=== PATIENT | male | born 1960 | race Caucasian/White ===

== ENCOUNTER 2017-03-28 14:33 | Emergency (ER) | payer BC ==
[~2017-03-28] VITALS: Ht 170.2 cm; Wt 89.0 kg
[2017-03-28] MEDS ORDERED: IBUPROFEN 600MG TABLET PO ONE (18:00)
[2017-03-28 18:45] VITALS: BP 133/74
== END 2017-03-28 19:30 | disposition home or self-care (01) ==
LOC: ER 15:13
DX: S20.211A Contusion of right front wall of thorax, initial encounter (principal); I10 Essential (primary) hypertension; F17.210 Nicotine dependence, cigarettes, uncomplicated; W07.XXXA Fall from chair, initial encounter; Y93.89 Activity, other specified; Y92.009 Unspecified place in unspecified non-institutional (private) residence as the place of occurrence of the external cause; Y99.8 Other external cause status
CPT/HCPCS: 99282

== ENCOUNTER 2017-06-30 07:55 | Emergency (ER) | payer BC ==
[~2017-06-30] VITALS: Ht 170.2 cm; Wt 86.0 kg
[2017-06-30 09:30] VITALS: BP 148/87
== END 2017-06-30 10:15 | disposition home or self-care (01) ==
LOC: ER 09:39
DX: M79.1 Myalgia (principal); I10 Essential (primary) hypertension
CPT/HCPCS: 99282; Z7610

== ENCOUNTER 2020-07-27 16:09 | Emergency (ER) | payer BC, MEDICAID ==
[~2020-07-27] VITALS: Ht 170.2 cm; Wt 76.0 kg
[2020-07-27 16:28] VITALS: BP 144/83
[2020-07-27] MEDS ORDERED: IBUPROFEN 600MG TABLET PO ONE (17:45)
== END 2020-07-27 18:44 | disposition home or self-care (01) ==
LOC: ER 16:09
DX: M54.9 Dorsalgia, unspecified (principal); M47.9 Spondylosis, unspecified
CPT/HCPCS: 72100; 99283

== ENCOUNTER 2021-08-16 14:35 | Inpatient (IN) | payer MEDICARE, MEDICAID ==
[~2021-08-16] VITALS: Ht 172.7 cm; Wt 81.2 kg
[~2021-08-16 14:35] MED LIST: AMOX-424 MT; SULF1TAB48 MT
[2021-08-16 15:00] VITALS: BP 125/67
[2021-08-16] MEDS ORDERED: ONDANSETRON HCL 4MG TABLET PO PRN (15:15)
[2021-08-16] MEDS ORDERED: ACETAMINOPHEN 650MG/20.3ML UDC PO PRN (15:15)
[2021-08-16] MEDS ORDERED: ACETAMINOPHEN 325MG TABLET PO PRN (15:15)
[2021-08-16] MEDS ORDERED: CLONIDINE 0.1MG TABLET PO PRN (15:15)
[2021-08-16 16:32] VITALS: BP 125/67
[2021-08-16] MEDS ORDERED: NALOXONE HCL 0.4MG/ML VIAL IV PRN (17:15)
[2021-08-16] MEDS: HYDROCODONE/ACETAMINOPHEN 10/325MG TABLET PO PRN (18:12)
[2021-08-16 20:00] VITALS: BP 121/67
[2021-08-17 06:36] LABS: HEMATOCRIT. 44.3 % (42.0-52.0); HEMOGLOBIN. 15.5 g/dL (14.0-18.0); MEAN CORPUSCULAR HEMOGLOBIN 33.3 pg (28.0-32.0); MEAN CORPUSCULAR VOLUME 95.3 fL (80.0-94.0); MEAN PLATELET VOLUME 6.6 fl (7.4-10.4); PLATELET 360 x1000/uL (130-400); RED BLOOD CELL COUNT 4.65 mill/uL (4.7-6.1); RED CELL DISTRIBUTION WIDTH 14.2 % (11.6-14.6)
[2021-08-17 06:49] LABS: CHLORIDE 107 mEq/L (98-107)
[2021-08-17 07:57] VITALS: BP 119/50
[2021-08-17] MEDS: FOLIC ACID 1MG TABLET PO SCH (09:09)
[2021-08-17] MEDS: THIAMINE HCL 100MG TABLET PO SCH (09:09)
[2021-08-17] MEDS: AMLODIPINE 10MG TABLET PO SCH (09:09)
[2021-08-17] MEDS: HYDROCODONE/ACETAMINOPHEN 10/325MG TABLET PO PRN ×2 (09:13→21:17)
[2021-08-17 17:48] LABS: PLATELET ESTIMATE NORMAL
[2021-08-17 20:00] VITALS: BP 102/53
[2021-08-18 08:00] VITALS: BP 111/55
[2021-08-18] MEDS: FOLIC ACID 1MG TABLET PO SCH (09:08)
[2021-08-18] MEDS: THIAMINE HCL 100MG TABLET PO SCH (09:08)
[2021-08-18] MEDS: AMLODIPINE 10MG TABLET PO SCH (09:08)
[2021-08-18] MEDS ORDERED: HYDROCORTISONE 1% RECTAL CREAM 30GM PR PRN (09:30)
[2021-08-18 18:19] LABS: HEPATITIS B SURFACE ANTIGEN NEGATIVE
[2021-08-18] MEDS: HYDROCODONE/ACETAMINOPHEN 10/325MG TABLET PO PRN (18:43)
[2021-08-18 20:00] VITALS: BP 147/73
[2021-08-19 06:25] LABS: BASOPHILS % 0.9 % (0.0-2.0); EOSINOPHILS % 4.7 % (0.0-5.0); HEMATOCRIT. 47.6 % (42.0-52.0); HEMOGLOBIN. 16.6 g/dL (14.0-18.0); LYMPHOCYTES % 23.3 % (20.0-50.0); MEAN CORPUSCULAR HEMOGLOBIN 33.6 pg (28.0-32.0); MEAN CORPUSCULAR VOLUME 96.5 fL (80.0-94.0); MEAN PLATELET VOLUME 6.6 fl (7.4-10.4); MONOCYTES % 13.3 % (2.0-8.0); NEUTROPHILS % 57.8 % (40.0-76.0); PLATELET 397 x1000/uL (130-400); RED BLOOD CELL COUNT 4.94 mill/uL (4.7-6.1); RED CELL DISTRIBUTION WIDTH 14.5 % (11.6-14.6)
[2021-08-19 06:42] LABS: FERRITIN 839 ng/mL (22-322); PROSTRATE SPECIFIC AG TOTAL 0.29 ng/mL (0.0-4.0)
[2021-08-19 06:47] LABS: CHLORIDE 107 mEq/L (98-107)
[2021-08-19 06:54] LABS: VITAMIN B12 SERUM 713 pg/mL (211-911)
[2021-08-19 06:57] LABS: FOLIC ACID (FOLATE) SERUM > 20.00 ng/mL (>5.38)
[2021-08-19 06:58] LABS: TOTAL IRON BINDING CAPACITY 401 ug/dL (250-450)
[2021-08-19 08:00] VITALS: BP 120/67
[2021-08-19] MEDS: FOLIC ACID 1MG TABLET PO SCH (09:41)
[2021-08-19] MEDS: THIAMINE HCL 100MG TABLET PO SCH (09:41)
[2021-08-19] MEDS: AMLODIPINE 10MG TABLET PO SCH (09:41)
[2021-08-19] MEDS ORDERED: OXYCODONE HCL 5MG TABLET PO PRN (10:30)
[2021-08-19] MEDS ORDERED: NALOXONE HCL 0.4MG/ML VIAL IV PRN (10:45)
[2021-08-19] MEDS ORDERED: HYDROCORTISONE 1% CREAM 30GM TOP SCH (11:00)
[2021-08-19] MEDS ORDERED: HYDROCORTISONE 1% CREAM 30GM TOP PRN (11:00)
[2021-08-19 20:00] VITALS: BP 122/55
[2021-08-20 07:02] LABS: CHLORIDE 107 mEq/L (98-107)
[2021-08-20 07:06] LABS: EOSINOPHILS % 3.9 % (0.0-5.0); HEMATOCRIT. 46.9 % (42.0-52.0); LYMPHOCYTES % 20.5 % (20.0-50.0); MEAN CORPUSCULAR HEMOGLOBIN 33.2 pg (28.0-32.0); MEAN PLATELET VOLUME 7.1 fl (7.4-10.4); MONOCYTES % 13.9 % (2.0-8.0); NEUTROPHILS % 60.7 % (40.0-76.0); PLATELET 424 x1000/uL (130-400); RED BLOOD CELL COUNT 4.83 mill/uL (4.7-6.1); RED CELL DISTRIBUTION WIDTH 14.3 % (11.6-14.6)
[2021-08-20 08:00] VITALS: BP 101/48
[2021-08-20] MEDS: THIAMINE HCL 100MG TABLET PO SCH (08:47)
[2021-08-20] MEDS: FOLIC ACID 1MG TABLET PO SCH (08:47)
[2021-08-20] MEDS: AMLODIPINE 10MG TABLET PO SCH (08:47)
[2021-08-20 20:00] VITALS: BP 139/63
[2021-08-21 07:49] VITALS: BP 137/70
[2021-08-21] MEDS: THIAMINE HCL 100MG TABLET PO SCH (08:15)
[2021-08-21] MEDS: AMLODIPINE 10MG TABLET PO SCH (08:15)
[2021-08-21] MEDS: FOLIC ACID 1MG TABLET PO SCH (08:15)
[2021-08-21] MEDS: OXYCODONE HCL 5MG TABLET PO PRN (08:16)
[2021-08-21 20:00] VITALS: BP 118/68
[2021-08-22 08:21] VITALS: BP 103/53
[2021-08-22] MEDS: THIAMINE HCL 100MG TABLET PO SCH (08:54)
[2021-08-22] MEDS: FOLIC ACID 1MG TABLET PO SCH (08:55)
[2021-08-22] MEDS: AMLODIPINE 10MG TABLET PO SCH (08:55)
[2021-08-22 20:00] VITALS: BP 127/62
[2021-08-23] MEDS: OXYCODONE HCL 5MG TABLET PO PRN ×2 (02:22→22:44)
[2021-08-23 07:09] LABS: BASOPHILS % 0.8 % (0.0-2.0); EOSINOPHILS % 5.5 % (0.0-5.0); HEMATOCRIT. 46.6 % (42.0-52.0); HEMOGLOBIN. 15.9 g/dL (14.0-18.0); LYMPHOCYTES % 23.5 % (20.0-50.0); MEAN CORPUSCULAR HEMOGLOBIN 33.3 pg (28.0-32.0); MEAN CORPUSCULAR VOLUME 97.6 fL (80.0-94.0); MEAN PLATELET VOLUME 6.9 fl (7.4-10.4); MONOCYTES % 11.5 % (2.0-8.0); NEUTROPHILS % 58.7 % (40.0-76.0); PLATELET 455 x1000/uL (130-400); RED BLOOD CELL COUNT 4.77 mill/uL (4.7-6.1); RED CELL DISTRIBUTION WIDTH 14.4 % (11.6-14.6)
[2021-08-23 07:20] LABS: CHLORIDE 107 mEq/L (98-107)
[2021-08-23 07:58] VITALS: BP 100/52
[2021-08-23] MEDS: AMLODIPINE 10MG TABLET PO SCH (09:00)
[2021-08-23] MEDS: FOLIC ACID 1MG TABLET PO SCH (10:00)
[2021-08-23] MEDS: THIAMINE HCL 100MG TABLET PO SCH (10:00)
[2021-08-23] MEDS: BACITRACIN 15GM TUBE TOP SCH (18:16)
[2021-08-23 20:00] VITALS: BP 158/62
[2021-08-24 07:44] VITALS: BP 104/45
[2021-08-24] MEDS ORDERED: AMLO10TA80 PO (08:39)
[2021-08-24] MEDS ORDERED: FOLI-43 PO (08:39)
[2021-08-24] MEDS ORDERED: THIA100T72 PO (08:39)
[2021-08-24] MEDS: THIAMINE HCL 100MG TABLET PO SCH (08:45)
[2021-08-24] MEDS: AMLODIPINE 10MG TABLET PO SCH (08:46)
[2021-08-24] MEDS: BACITRACIN 15GM TUBE TOP SCH (08:46)
[2021-08-24] MEDS: FOLIC ACID 1MG TABLET PO SCH (08:46)
[2021-08-24 11:02] VITALS: BP 104/65
[2021-08-26 19:10] LABS: 25-HYDROXY VITAMIN D3 16 ng/mL (.)
== END 2021-08-24 17:00 | disposition home health service (06) | DRG 571 ==
PROVIDERS: ADMIT Physical Medicine & Rehabilitation Spinal Cord Injury Medicine; ATTEND Internal Medicine
PROC: 0JBN0ZZ Excision of Right Lower Leg Subcutaneous Tissue and Fascia, Open Approach (ICD-10-PCS; principal; 2021-08-18)
PROC: 0JBN0ZZ Excision of Right Lower Leg Subcutaneous Tissue and Fascia, Open Approach (ICD-10-PCS; 2021-08-23)
DX: L03.115 Cellulitis of right lower limb (principal); J98.11 Atelectasis; G62.9 Polyneuropathy, unspecified; S81.811A Laceration without foreign body, right lower leg, initial encounter; F10.20 Alcohol dependence, uncomplicated; R53.81 Other malaise; K76.0 Fatty (change of) liver, not elsewhere classified; I10 Essential (primary) hypertension; R26.89 Other abnormalities of gait and mobility; K82.4 Cholesterolosis of gallbladder; E88.09 Other disorders of plasma-protein metabolism, not elsewhere classified; R16.0 Hepatomegaly, not elsewhere classified; R14.0 Abdominal distension (gaseous); F39 Unspecified mood [affective] disorder; Y90.9 Presence of alcohol in blood, level not specified; F17.210 Nicotine dependence, cigarettes, uncomplicated; X58.XXXA Exposure to other specified factors, initial encounter; Y93.89 Activity, other specified; Y92.89 Other specified places as the place of occurrence of the external cause; Y99.8 Other external cause status
CPT/HCPCS: 36415; 73120; 80053; 80076; 82248; 82306; 82607; 82728; 82746; 83540; 83550; 84134; 84153; 84443; 85025; 86705; 86709; 86803; 87340; 93970; 93971; 97110; 97116; 97162; 97166; 97530; 97535; G0103

== ENCOUNTER 2022-12-24 16:48 | Emergency (ER) | payer MEDICARE, MEDICAID ==
[~2022-12-24] VITALS: Ht 167.6 cm; Wt 84.0 kg
[~2022-12-24 16:48] MED LIST changes: +AMLO10TA80 PO; -AMOX-424 MT; +FOLI-43 PO; -SULF1TAB48 MT; +THIA100T72 PO
[2022-12-24] MEDS ORDERED: IBUP-2028 MT (19:43)
[2022-12-24 20:46] VITALS: BP 152/70
== END 2022-12-24 20:53 | disposition home or self-care (01) ==
LOC: ER 16:48
DX: M25.562 Pain in left knee (principal); I10 Essential (primary) hypertension; E78.00 Pure hypercholesterolemia, unspecified; K76.9 Liver disease, unspecified; W01.0XXA Fall on same level from slipping, tripping and stumbling without subsequent striking against object, initial encounter; Y93.89 Activity, other specified; Y92.018 Other place in single-family (private) house as the place of occurrence of the external cause
CPT/HCPCS: 73560; 99283

== ENCOUNTER 2024-04-18 16:15 | Emergency (ER) | payer MEDICARE ==
[~2024-04-18] VITALS: Ht 172.7 cm; Wt 86.0 kg
[~2024-04-18 16:15] MED LIST changes: +IBUP-2028 MT; +IBUP-2029 MT
[2024-04-18 16:21] VITALS: TEMP 98.7; O2SAT 95
[2024-04-18 18:15] VITALS: BP 139/117; PULSE 98; RESP 20
[2024-04-18] MEDS: KETOROLAC 30MG/ML VIAL IM ONE (18:15)
== END 2024-04-18 21:55 | disposition home or self-care (01) ==
LOC: ER 16:15
DX: S69.92XA Unspecified injury of left wrist, hand and finger(s), initial encounter (principal); E11.9 Type 2 diabetes mellitus without complications; E78.00 Pure hypercholesterolemia, unspecified; Z79.899 Other long term (current) drug therapy; W18.39XA Other fall on same level, initial encounter; Y93.89 Activity, other specified; Y92.89 Other specified places as the place of occurrence of the external cause; Y99.8 Other external cause status
CPT/HCPCS: 99283; 73110; 29125; 96372; J1885